=== PATIENT | female | born 1985 | race Caucasian/White ===

== ENCOUNTER 2020-09-07 19:58 | Emergency (ER) | payer OTHER ==
[~2020-09-07 19:58] MED LIST: CEFDINIR300 MG PO; GUAIFENESIN DM1 EACH PO
[2020-09-08] MEDS ORDERED: OMNICEF 300 MG300 MG PO (15:02)
== END 2020-09-07 22:45 | disposition left against medical advice (07) ==
LOC: ER1 19:58
DX: Z53.21 Procedure and treatment not carried out due to patient leaving prior to being seen by health care provider (principal)

== ENCOUNTER 2020-09-08 11:36 | Emergency (ER) | payer OTHER ==
[2020-09-08 13:03] LABS: HEMOGLOBIN 13.4 gm/dl (12.3-15.3); RED BLOOD COUNT 4.58 M/UL (4.00-5.10)
[2020-09-08 13:49] LABS: BUN/CREATININE RATIO 15 (0-10)
[2020-09-08] MEDS ORDERED: OMNICEF 300 MG300 MG PO (15:02)
[2020-09-11 08:14] LABS: HBSAG SCREEN Positive (Negative); HEP A AB, IGM Negative (Negative); HEP B CORE AB, IGM Positive (Negative); HEP C VIRUS AB >11.0 (0.0-0.9)
== END 2020-09-08 16:00 | disposition home or self-care (01) ==
LOC: ER1 11:36
PROVIDERS: Emergency Medicine
DX: N39.0 Urinary tract infection, site not specified (principal); E87.6 Hypokalemia; B17.9 Acute viral hepatitis, unspecified
CPT/HCPCS: 80053; 80074; 80307; 81001; 82150; 83605; 83690; 84703; 85025; 85610; 85730; 96374; 99284; J0696; Q9967